=== PATIENT | female | born 1970 | race Caucasian/White ===

== ENCOUNTER 2019-08-30 20:12 | Emergency (ER) | payer SELFPAY ==
[~2019-08-30] VITALS: Ht 154.9 cm; Wt 77.1 kg
[~2019-08-30 20:12] MED LIST: ALBU-136 IH
[2019-08-30 20:30] VITALS: BP 128/90
--- NOTE | 2019-08-30 20:33 | NUR ---
TO LOBBY A/W BED AMBULATORY
--- NOTE | 2019-08-30 22:07 | NUR ---
PT AMBULATED TO CHAIR C.
[2019-08-30] MEDS ORDERED: DEXAMETHASONE 10 MG/ML VIAL IM ONE (22:10)
[2019-08-30] MEDS ORDERED: ALBUTEROL SULFATE/IPRATROPIU 3 ML SOL IH ONE ×2 (22:10→22:30)
[2019-08-30 22:50] VITALS: BP 128/90
--- NOTE | 2019-08-30 22:50 | NUR ---
Patient discharged with v/s stable. No longer c/o sob/dyspnea. Written and verbal after care instructions given and explained. Patient alert, oriented and verbalized understanding of instructions. Ambulatory with steady gait. All questions addressed prior to discharge. ID band removed. Patient advised to follow up with PMD. Rx of Promethazine and Augmenting given. Patient educated on indication of medication including possible reaction and side effects. Opportunity to ask questions provided and answered.
== END 2019-08-30 22:50 | disposition home or self-care (01) ==
LOC: MED 20:12
DX: J32.9 Chronic sinusitis, unspecified (principal); J45.901 Unspecified asthma with (acute) exacerbation; Z79.899 Other long term (current) drug therapy; Z98.890 Other specified postprocedural states
CPT/HCPCS: 87804; 94640; 99284; J1100; J7620